=== PATIENT | male | born 1960 | race Caucasian/White ===

== ENCOUNTER 2017-12-06 21:46 | Emergency (ER) | payer MEDICAID ==
[~2017-12-06] VITALS: Ht 170.2 cm; Wt 95.0 kg
[2017-12-07 00:46] VITALS: BP 168/82
[2017-12-07] MEDS ORDERED: BACITRACIN ZINC OINT UDPKT TOP ONE (01:15)
[2017-12-07] MEDS ORDERED: LIDOCAINE HCL/PF 1% 10 MG/ML 5ML VIAL IJ ONE (01:15)
== END 2017-12-07 03:23 | disposition home or self-care (01) ==
LOC: ER 21:46
DX: S61.411A Laceration without foreign body of right hand, initial encounter (principal); E11.9 Type 2 diabetes mellitus without complications; Y08.89XA Assault by other specified means, initial encounter; Y93.9 Activity, unspecified; Y92.9 Unspecified place or not applicable
CPT/HCPCS: 12002; 73130; 99284; J3490

== ENCOUNTER 2021-08-05 20:05 | Emergency (ER) | payer MEDICAID ==
[~2021-08-05] VITALS: Ht 167.6 cm; Wt 94.9 kg
[2021-08-05 21:32] LABS: EOSINOPHILS % 4.2 % (0.0-5.0); HEMATOCRIT. 41.7 % (42.0-52.0); HEMOGLOBIN. 14.2 g/dL (14.0-18.0); LYMPHOCYTES % 44.3 % (20.0-50.0); MEAN CORPUSCULAR HEMOGLOBIN 30.7 pg (28.0-32.0); MEAN CORPUSCULAR VOLUME 90.1 fL (80.0-94.0); MEAN PLATELET VOLUME 10.9 fl (7.4-10.4); NEUTROPHILS % 44.5 % (40.0-76.0); PLATELET 176 x1000/uL (130-400); RED BLOOD CELL COUNT 4.63 mill/uL (4.7-6.1)
[2021-08-05 21:36] LABS: CHLORIDE 98 mEq/L (98-107)
[2021-08-05 23:30] VITALS: BP 155/70
== END 2021-08-06 00:52 | disposition home or self-care (01) ==
LOC: ER 20:05
DX: R00.2 Palpitations (principal); I10 Essential (primary) hypertension; E78.00 Pure hypercholesterolemia, unspecified; E11.9 Type 2 diabetes mellitus without complications
CPT/HCPCS: 36415; 71045; 80053; 82962; 83880; 84484; 85025; 93005; 99285; Z7610

== ENCOUNTER 2024-12-11 12:20 | Emergency (ER) | payer MEDICAID, OTHER ==
[~2024-12-11] VITALS: Ht 167.6 cm; Wt 75.0 kg
[2024-12-11 12:30] VITALS: O2SAT 96
[2024-12-11] MEDS ORDERED: LIDOCAINE HCL 1% 20ML VIAL INFIL STA (12:40)
[2024-12-11 12:45] VITALS: BP 126/61; PULSE 59; RESP 10; TEMP 36.9; O2SAT 98
[2024-12-11 13:07] LABS: PLATELET 210 x1000/uL (130-400); RED BLOOD CELL COUNT 4.41 mill/uL (4.7-6.1); RED CELL DISTRIBUTION WIDTH 13.8 % (11.6-14.6)
== END 2024-12-11 16:45 | disposition home or self-care (01) ==
LOC: ER 12:20
DX: S51.812A Laceration without foreign body of left forearm, initial encounter (principal); E11.9 Type 2 diabetes mellitus without complications; E78.00 Pure hypercholesterolemia, unspecified; I10 Essential (primary) hypertension; W25.XXXA Contact with sharp glass, initial encounter; Y93.89 Activity, other specified; Y92.89 Other specified places as the place of occurrence of the external cause; Y99.8 Other external cause status
CPT/HCPCS: 85027; 86850; 86900; 86901; 36415; 73090; 12005; 99291; J2003; Z7610 ×2

== ENCOUNTER 2024-12-13 12:10 | Emergency (ER) | payer OTHER ==
[~2024-12-13] VITALS: Ht 170.2 cm; Wt 81.0 kg
[2024-12-13 12:20] VITALS: O2SAT 98
[2024-12-13] MEDS ORDERED: BO1 TP (12:59)
[2024-12-13 13:06] VITALS: BP 154/60; PULSE 58; RESP 17; TEMP 36.7; O2SAT 98
== END 2024-12-13 13:07 | disposition home or self-care (01) ==
LOC: ER 12:10
DX: S51.811D Laceration without foreign body of right forearm, subsequent encounter (principal); E11.9 Type 2 diabetes mellitus without complications; E78.00 Pure hypercholesterolemia, unspecified; I10 Essential (primary) hypertension; Z48.00 Encounter for change or removal of nonsurgical wound dressing; X58.XXXD Exposure to other specified factors, subsequent encounter
CPT/HCPCS: 99282; Z7610; A6449; 99281